=== PATIENT | female | born 1940 | race Caucasian/White ===

== ENCOUNTER 2018-01-09 17:24 | Emergency (ER) | payer MEDICARE, OTHER ==
--- NOTE | 2018-01-09 18:12 | EDM.PDOC ---
ED HPI GENERAL MEDICAL PROBLEM - General Chief Complaint: Upper Extremity Injury/Pain Stated Complaint: LEFT ARM INJURY Time Seen by Provider: 01/09/18 17:36 Source of Information: Reports: Patient History Limitations: Reports: No Limitations - History of Present Illness INITIAL COMMENTS - FREE TEXT/NARRATIVE: The patient presents with left elbow pain. She says she tripped on her husbands oxygen cord and hit her head on the counter as she went down and landed on her left elbow. She had no LOC. She has no neck pain. She has some mild pain to the right upper back. She has no headache, blurred vision or double vision. She has no numbness or weakness. She has no chest pain, abdominal pain, hip or leg pain. Onset: Today Duration: Minutes: Location: Reports: Upper Extremity, Left (Elbow) Quality: Reports: Sharp Severity: Moderate Improves with: Reports: Immobilization Worsens with: Reports: Movement Context: Reports: Trauma (She tripped on her 's oxygen cable and fell) Associated Symptoms: Reports: No Other Symptoms Left Arm Pain Score (Numeric/FACES): 10 - Related Data Allergies Allergy/AdvReac Type Severity Reaction Status Date / Time oxaprozin [From Daypro] Allergy Hives Verified 11/13/17 10:26 Cusqwre-Akk-Bza Reductase Allergy Other Verified 01/09/18 17:38 Inhibitor Past Medical History Cardiovascular History: Reports: Angina Other Cardiovascular History: Echos Respiratory History: Reports: SOB Gastrointestinal History: Reports: Chronic Constipation Genitourinary History: Reports: None 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: Oncologic (Cancer) History: Reports: Breast - Past Surgical History HEENT Surgical History: Reports: Cataract Surgery Female Surgical History: Reports: Hysterectomy Other Musculoskeletal Surgeries/Procedures:: Bilateral feet, right shoulder x2, bilateral knee replacement, thumb Oncologic Surgical History: Reports: Mastectomy Social & Family History - Family History Family Medical History: Noncontributory - Tobacco Use Smoking Status *Q: Former Smoker Used Tobacco, but Quit: Yes Month/Year Tobacco Last Used: 1985 - Recreational Drug Use Recreational Drug Use: No Review of Systems - Review of Systems Review Of Systems: See Below Constitutional: Reports: No Symptoms Eyes: Reports: No Symptoms Ears: Reports: No Symptoms Nose: Reports: No Symptoms Mouth/Throat: Reports: Other (Superficial abrasion to the lower inner lip) Respiratory: Reports: No Symptoms Cardiovascular: Reports: No Symptoms GI/Abdominal: Reports: No Symptoms Genitourinary: Reports: No Symptoms Musculoskeletal: Reports: Joint Pain (Left elbow) ED EXAM, GENERAL - Physical Exam Exam: See Below Exam Limited By: No Limitations General Appearance: Alert, No Apparent Distress Ears: Normal External Exam Nose: Normal Inspection Throat/Mouth: Other (abrasion to the lower inner lip) Head: Other (mild edema to the left maxillary area) Neck: Normal Inspection Respiratory/Chest: No Respiratory Distress, Lungs Clear, Normal Breath Sounds Cardiovascular: Regular Rate, Rhythm, No Edema, No Murmur GI/Abdominal: Soft, Non-Tender, No Organomegaly, No Mass Back Exam: Other (Mild pain upon palpation to the right upper back) Extremities: Other (Pain upon palpation to the left elbow. No edema noted. Good sensation and pulses distally.) Course - Vital Signs Last Recorded V/S: Last Vital Signs Temp 98.0 F 01/09/18 17:34 Pulse 46 L 01/09/18 17:34 Resp 17 01/09/18 17:34 BP 129/65 01/09/18 17:34 Pulse Ox 99 01/09/18 17:34 - Orders/Labs/Meds Orders: Active Orders 24 hr Category Date Time Status Elbow Min 3V Lt [CR] Stat Exams 01/09/18 17:41 Taken - Re-Assessments/Exams Free Text/Narrative Re-Assessment/Exam: 01/09/18 18:12 I ordered an x-ray of her left elbow. 01/09/18 18:51 Her x-ray looks good. I will give her a sling and have her follow up with her doctor. Departure - Departure Time of Disposition: 18:55 Disposition: Home, Self-Care 01 Condition: Good Clinical Impression: Fall Qualifiers: Encounter type: initial encounter Qualified Code(s): W19.XXXA - Unspecified fall, initial encounter Sprain of elbow, left Qualifiers: Encounter type: initial encounter Qualified Code(s): S53.402A - Unspecified sprain of left elbow, initial encounter - Discharge Information *PRESCRIPTION DRUG MONITORING PROGRAM REVIEWED*: Not Applicable *COPY OF PRESCRIPTION DRUG MONITORING REPORT IN PATIENT DANIELLA: Not Applicable Referrals: Liseth Cohen DISPATCHER RELAY [Primary Care Provider] - 1 Week Forms: ED Department Discharge Additional Instructions: Ice your elbow for 15 minutes 3 times per day for 2 days. Wear the sling for comfort. Do not leave the sling on all day long. Take your arm out and move it multiple times per day to avoid frozen shoulder. Take motrin or tylenol for pain. Please return if you are worse. - My Orders Last 24 Hours: My Active Orders 01/09/18 17:41 Elbow Min 3V Lt [CR] Stat - Assessment/Plan Last 24 Hours: My Active Orders 01/09/18 17:41 Elbow Min 3V Lt [CR] Stat
--- NOTE | 2018-01-15 08:09 | CR ---
Left elbow: Four views of left elbow were obtained. Slight articular calcifications are seen. Several small bony densities are seen off the lateral epicondyle which are incidental. Small scattered soft tissue calcifications are seen which are incidental. No joint effusion is seen. No acute fracture or other bony abnormality is identified. Impression: 1. Incidental findings as noted above. Nothing acute is seen on left elbow study. Diagnostic code #2 I agree with preliminary report issued by [facility] ([facility] preliminary report dictated on 01/09/18, 7:40 PM Central Time)
== END 2018-01-09 19:10 | disposition home or self-care (01) ==
LOC: JD.ED 17:24
DX: S53.402A Unspecified sprain of left elbow, initial encounter (principal); Z87.891 Personal history of nicotine dependence; Z88.8 Allergy status to other drugs, medicaments and biological substances; W01.198A Fall on same level from slipping, tripping and stumbling with subsequent striking against other object, initial encounter
CPT/HCPCS: 73080-LT; 99283

== ENCOUNTER 2019-01-07 17:43 | Observation (INO) | payer MEDICARE, OTHER ==
[2019-01-07] MEDS ORDERED: Lactated Ringers 1,000 ML IV ONE (19:38)
--- NOTE | 2019-01-07 19:50 | EDM.PDOC ---
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 She was just released from [facility] this afternoon about 66 hours ago after having been transferred there this past Saturday 4 days ago for A fib, elevated troponin, sx of dizziness and dyspnea with exertion. She was found to have multiple PE, started on eliquis 1 tab bid per patient and than increased to 2 tabs bid. She has had her AM dose today but not her evening dose. She was feeling fine at time of discharge. She states she was sitting in the chair started to feel somewhat lightheaded and dizzy so stood up apparently to walk to her bedroom and that is when she had the brief syncopal event. At time of exam she is resting comfortably on cot having been here in the ED for about an hour prior to my coming on shift and having availability to evaluate her. At time of my exam she denies chest pain. She does still feel very mildly short of breath. No abdominal pain nausea or vomiting. Her mouth does feel very dry at time of my exam. Treatments MEDICAL STAFF DIRECTOR: Reports: IV/IO - Related Data Allergies Allergy/AdvReac Type Severity Reaction Status Date / Time oxaprozin [From Daypro] Allergy Hives Verified 01/07/19 17:51 Zcfsggs-Xqf-Eku Reductase AdvReac Pain Verified 01/07/19 17:51 Inhibitor Home Meds: Home Meds Aspirin [Children's Aspirin] 81 mg PO BEDTIME 12/03/18 [History] Cholecalciferol (Vitamin D3) [Vitamin D3] 5,000 unit PO DAILY 12/03/18 [History] Fenofibrate 160 mg PO DAILY 12/03/18 [History] Fish Oil/[place]-3 Fatty Acids [Fish Oil 1,000 MG] 1 gm PO DAILY 12/03/18 [History ] Levothyroxine [Synthroid] 50 mcg PO BEDTIME 12/03/18 [History] Omeprazole 20 mg PO DAILY 12/03/18 [History] Triamterene/Hydrochlorothiazid [Triamterene-HCTZ 37.5-25 MG] 1 tab PO DAILY [History] Venlafaxine HCl [Venlafaxine ER] 150 mg PO DAILY 12/03/18 [History] amLODIPine Besylate [Amlodipine Besylate] 5 mg PO DAILY 12/03/18 [History] L.acidoph,Paracasei, B.lactis [Probiotic] 1 tab PO DAILY 01/03/19 [History] Tumeric. 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: Oncologic (Cancer) History: Reports: Breast - Past Surgical History HEENT Surgical History: Reports: Cataract Surgery Female Surgical History: Reports: Hysterectomy, Mastectomy Musculoskeletal Surgical History: Reports: Knee Replacement, Shoulder Surgery Other Musculoskeletal Surgeries/Procedures:: Bilateral feet, right shoulder x2, bilateral knee replacement, thumb Oncologic Surgical History: Reports: Mastectomy Social & Family History - Family History Family Medical History: Noncontributory - Tobacco Use Smoking Status *Q: Former Smoker Used Tobacco, but Quit: Yes Month/Year Tobacco Last Used: 10 yr - Caffeine Use Caffeine Use: Reports: None ED ROS GENERAL - Review of Systems Review Of Systems: See Below Constitutional: Reports: Diaphoresis (Mild, gone). Denies: Fever, Chills HEENT: Reports: Other. Denies: Throat Pain (Mouth does feel dry), Throat Swelling Respiratory: Reports: Shortness of Breath (Mild, now better). Denies: Pleuritic Chest Pain, Cough, Hemoptysis Cardiovascular: Reports: Lightheadedness (Now better). Denies: Chest Pain GI/Abdominal: Denies: Abdominal Pain, Diarrhea, Nausea, Vomiting Musculoskeletal: Denies: Neck Pain, Shoulder Pain, Arm Pain, Back Pain Skin: Reports: Diaphoresis (Mild, gone) Neurological: Reports: Weakness. Denies: Numbness, Tingling, Trouble Speaking ( Generalized, no better) ED EXAM, GENERAL - Physical Exam Exam: See Below General Appearance: Alert, No Apparent Distress (At time of my exam) Eye Exam: Bilateral Eye: PERRL Ears: Normal External Exam Nose: Normal Inspection, Nasal Flaring Throat/Mouth: Normal Oropharynx Head: Atraumatic. No: Facial Swelling Neck: Supple, Full Range of Motion, Other (No JVD). No: Lymphadenopathy (L), Lymphadenopathy (R) Respiratory/Chest: No Respiratory Distress, Lungs Clear, Normal Breath Sounds Cardiovascular: Regular Rate, Rhythm GI/Abdominal: Soft, Non-Tender Extremities: Normal Inspection, Normal Range of Motion. No: Pedal Edema, Leg Pain, Increased Warmth, Redness Neurological: Alert, Oriented, No Motor/Sensory Deficits Skin Exam: Warm, Dry, Normal Color, No Rash EKG INTERPRETATION EKG Date: 01/07/19 Rhythm: A-Fib P-Wave: Absent QRS: Other (low voltage mult. leads) ST-T: Other (T wave flattening mult. leads) Course - Vital Signs Last Recorded V/S: Last Vital Signs Temp 97.7 F 01/07/19 17:52 Pulse 97 01/07/19 17:52 Resp 24 H 01/07/19 17:52 BP 94/61 01/07/19 17:52 Pulse Ox 88 L 01/07/19 17:52 - Orders/Labs/Meds Orders: Active Orders 24 hr Category Date Time Status EKG 12 Lead [EKG Documentation Completion] [RC] STAT Care 01/07/19 19:05 Active Chest 1V Frontal [CR] Stat Exams 01/07/19 19:04 Taken Medication Orders Acetaminophen (Tylenol) 650 mg PO Q4H PRN PRN Reason: Pain (Mild 1-3)/fever Last Admin: 01/07/19 23:10 Dose: 650 mg Hydrocodone Bitart/Acetaminophen ([place] 325-5 Mg) 1 tab PO Q4H PRN PRN Reason: Pain (moderate 4-6) Albuterol/Ipratropium (Duoneb 3.0-0.5 Mg/3 Ml) 3 ml NEB Q4H PRN PRN Reason: Shortness Of Breath/wheezing Amlodipine Besylate (Norvasc) 5 mg PO DAILY [facility] Apixaban (Eliquis) 10 mg PO BID [facility] Stop: 01/12/19 21:01 Last Admin: 01/07/19 23:03 Dose: 10 mg Apixaban (Eliquis) 5 mg PO BID [facility] Aspirin (Halfprin) 81 mg PO BEDTIME [facility] Last Admin: 01/07/19 23:03 Dose: 81 mg Bisacodyl (Dulcolax) 5 mg PO DAILY PRN PRN Reason: Constipation Docusate Sodium (Colace) 100 mg PO BID PRN PRN Reason: Constipation Hydralazine HCl (Apresoline) 15 mg IVPUSH Q4H PRN PRN Reason: Hypertension Hydromorphone HCl (Dilaudid) 0.25 mg IVPUSH Q2H PRN PRN Reason: Pain (severe 7-10) Promethazine HCl 6.25 mg/ (Sodium Chloride) 50.25 mls @ 100 mls/hr IV Q6H PRN PRN Reason: Nausea/Vomiting Levothyroxine Sodium (Synthroid) 50 mcg PO BEDTIME [facility] Last Admin: 01/07/19 23:03 Dose: 50 mcg Lorazepam (Ativan) 0.25 mg IV Q6H PRN PRN Reason: Anxiety Lorazepam (Ativan) 2 mg IVPUSH Q4H PRN PRN Reason: Seizures Metoprolol Tartrate (Lopressor) 5 mg IVPUSH Q4H PRN PRN Reason: Tachycardia Non-Formulary Medication (Cholecalciferol (Vitamin D3) [Vitamin D3]) 5,000 unit PO DAILY [facility] Non-Formulary Medication (Fenofibrate) 160 mg PO DAILY [facility] Non-Formulary Medication (Omeprazole) 20 mg PO DAILY [facility] Non-Formulary Medication (Venlafaxine Hcl) 150 mg PO DAILY [facility] Ondansetron HCl (Zofran) 4 mg IV Q6H PRN PRN Reason: Nausea/Vomiting Polyethylene Glycol (Miralax) 17 gm PO DAILY PRN PRN Reason: Constipation Senna/Docusate Sodium (Senna Plus) 2 tab PO BID [facility] Last Admin: 01/07/19 23:03 Dose: 2 tab Senna/Docusate Sodium (Senna Plus) 1 tab PO BID PRN PRN Reason: Constipation Zolpidem Tartrate (Ambien) 5 mg PO BEDTIME PRN PRN Reason: Sleep Labs: Laboratory Tests 01/07/19 01/07/19 01/07/19 Range/Units 17:53 17:53 17:53 WBC 7.17 (3.98-10.04) K/mm3 RBC 4.05 (3.98-5.22) M/mm3 Hgb 12.6 D (11.2-15.7) gm/L Hct 39.0 (34.1-44.9) % MCV 96.3 H D (79.4-94.8) fl MCH 31.1 (25.6-32.2) pg MCHC 32.3 (32.2-35.5) g/dl RDW Std Deviation 52.1 H (36.4-46.3) fL Plt Count 184 (182-369) K/mm3 MPV 11.9 (9.4-12.3) fl Neut % (Auto) 67.0 (34.0-71.1) % Lymph % (Auto) 24.7 (19.3-51.7) % [place] % (Auto) 6.8 (4.7-12.5) % Eos % (Auto) 1.1 (0.7-5.8) Baso % (Auto) 0.1 (0.1-1.2) % Neut # (Auto) 4.80 (1.56-6.13) K/mm3 Lymph # (Auto) 1.77 (1.18-3.74) K/mm3 [place] # (Auto) 0.49 H (0.24-0.36) K/mm3 Eos # (Auto) 0.08 (0.04-0.36) K/mm3 Baso # (Auto) 0.01 (0.01-0.08) K/mm3 D-Dimer, Quantitative 5.03 H (0.19-0.50) mg/L Sodium 145 (136-145) mEq/L Potassium 3.9 (3.5-5.1) mEq/L Chloride 111 H (98-107) mEq/L Carbon Dioxide 18 L (21-32) mEq/L Anion Gap 19.9 H (5-15) BUN 32 H (7-18) mg/dL Creatinine 1.4 H (0.55-1.02) mg/dL Est Cr Clr Drug Dosing 35.73 mL/min Estimated GFR (MDRD) 37 (>60) mL/min BUN/Creatinine Ratio 22.9 H (14-18) Glucose 176 H (83-115) mg/dL Calcium 9.1 (8.5-10.1) mg/dL Total Bilirubin 0.7 (0.2-1.0) mg/dL AST 153 H (15-37) U/L ALT 159 H (14-59) U/L Alkaline Phosphatase 87 (46-116) U/L Troponin I 0.051 (0.00-0.056) ng/mL Total Protein 6.9 (6.4-8.2) g/dl Albumin 3.1 L (3.4-5.0) g/dl Globulin 3.8 gm/dL Albumin/Globulin Ratio 0.8 L (1-2) Meds: Medications Generic Name Dose Route Start Last Admin Trade Name Freq PRN Reason Stop Dose Admin Acetaminophen 650 mg 01/07/19 22:17 01/07/19 23:10 Tylenol PO 650 mg Q4H PRN Administration Pain (Mild 1-3)/fever Hydrocodone Bitart/Acetaminophen 1 tab 01/07/19 22:17 [place] 325-5 Mg PO Q4H PRN Pain (moderate 4-6) Albuterol/Ipratropium 3 ml 01/07/19 22:17 Duoneb 3.0-0.5 Mg/3 Ml NEB Q4H PRN Shortness Of Breath/wheezing Amlodipine Besylate 5 mg 01/08/19 09:00 Norvasc PO DAILY CLAUDE Apixaban 10 mg 01/07/19 23:00 01/07/19 23:03 Eliquis PO 01/12/19 21:01 10 mg BID CLAUDE Administration Apixaban 5 mg 01/13/19 09:00 Eliquis PO BID CLAUDE Aspirin 81 mg 01/07/19 23:00 01/07/19 23:03 Halfprin PO 81 mg BEDTIME CLAUDE Administration Bisacodyl 5 mg 01/07/19 22:17 Dulcolax PO DAILY PRN Constipation Docusate Sodium 100 mg 01/07/19 22:17 Colace PO BID PRN Constipation Hydralazine HCl 15 mg 01/07/19 22:21 Apresoline IVPUSH Q4H PRN Hypertension Hydromorphone HCl 0.25 mg 01/07/19 22:17 Dilaudid IVPUSH Q2H PRN Pain (severe 7-10) Promethazine HCl 6.25 mg/ 50.25 mls @ 100 mls/hr 01/07/19 22:17 Sodium Chloride IV Q6H PRN Nausea/Vomiting Levothyroxine Sodium 50 mcg 01/07/19 23:00 01/07/19 23:03 Synthroid PO 50 mcg BEDTIME CLAUDE Administration Lorazepam 0.25 mg 01/07/19 22:17 Ativan IV Q6H PRN Anxiety Lorazepam 2 mg 01/07/19 22:21 Ativan IVPUSH Q4H PRN Seizures Metoprolol Tartrate 5 mg 01/07/19 22:21 Lopressor IVPUSH Q4H PRN Tachycardia Non-Formulary Medication 5,000 unit 01/08/19 09:00 Cholecalciferol (Vitamin D3) [Vitamin D3] PO DAILY CLAUDE Non-Formulary Medication 160 mg 01/08/19 09:00 Fenofibrate PO DAILY CLAUDE Non-Formulary Medication 20 mg 01/08/19 09:00 Omeprazole PO DAILY CLAUDE Non-Formulary Medication 150 mg 01/08/19 09:00 Venlafaxine Hcl PO DAILY CLAUDE Ondansetron HCl 4 mg 01/07/19 22:17 Zofran IV Q6H PRN Nausea/Vomiting Polyethylene Glycol 17 gm 01/07/19 22:17 Miralax PO DAILY PRN Constipation Senna/Docusate Sodium 2 tab 01/07/19 23:00 01/07/19 23:03 Senna Plus PO 2 tab BID CLAUDE Administration Senna/Docusate Sodium 1 tab 01/07/19 22:17 Senna Plus PO BID PRN Constipation Zolpidem Tartrate 5 mg 01/07/19 22:17 Ambien PO BEDTIME PRN Sleep Discontinued Medications Generic Name Dose Route Start Last Admin Trade Name Freq PRN Reason Stop Dose Admin Furosemide 10 mg 01/07/19 22:22 01/07/19 23:02 Lasix IVPUSH 01/07/19 22:23 10 mg NOW ONE Administration Lactated Ringer's 1,000 mls @ 999 mls/hr 01/07/19 19:38 01/07/19 19:50 Ringers, Lactated IV 01/07/19 20:38 999 mls/hr .BOLUS ONE Administration Pantoprazole Sodium 40 mg 01/08/19 09:00 Protonix Iv IV Q12HR CLAUDE - Re-Assessments/Exams Free Text/Narrative Re-Assessment/Exam: 01/07/19 23:38. O2 sats were 88% on arrival to ED by the time of my exam a running 92-94%. She was not wheezing or obviously short of breath. Chest x-ray showed mild cardiomegaly, no infiltrate or evidence for pulmonary congestion. Labs did show what appears to be moderate dehydration with CO2 of 18, anion gap 19.9, BUN 32 creatinine 1.4. BNP noted to be quite elevated at 16,902. D Dimer 5.03. WBC 12.6 white blood count 7170. She was given 1 L of lactated Ringer's. She is doing much better but in terms of her brief syncope at home not safe to go home at time of admission. Patient was admitted observation status MedSurg telemetry for further evaluation and treatment. Departure - Departure Time of Disposition: 20:15 Disposition: Refer to Observation Condition: Fair Clinical Impression: Dehydration, Pulmonary emboli Syncope Qualifiers: Syncope type: unspecified Qualified Code(s): R55 - Syncope and collapse - Discharge Information ED Communication - Discussed Case With (1) Discussed Case With (1): Admitting Provider (Dr Alberto, decision to admit at about 20:15.) - My Orders Last 24 Hours: My Active Orders 01/07/19 19:04 Chest 1V Frontal [CR] Stat 01/07/19 19:05 EKG 12 Lead [EKG Documentation Completion] [RC] STAT - Assessment/Plan Last 24 Hours: My Active Orders 01/07/19 19:04 Chest 1V Frontal [CR] Stat 01/07/19 19:05 EKG 12 Lead [EKG Documentation Completion] [RC] STAT
[2019-01-07] MEDS ORDERED: Bisacodyl 5 MG Tab PO PRN (22:17)
[2019-01-07] MEDS ORDERED: Ondansetron 4 MG/2 ML SDV IV PRN (22:17)
[2019-01-07] MEDS ORDERED: Docusate Sodium 100 MG Cap PO PRN (22:17)
[2019-01-07] MEDS ORDERED: Polyethylene Glycol 3350 Powder 17 GM Packet PO PRN (22:17)
[2019-01-07] MEDS ORDERED: LORazepam 2 MG/ML SDV IV PRN (22:17)
[2019-01-07] MEDS ORDERED: Acetaminophen/HYDROcodone 325-5 MG Tab PO PRN (22:17)
[2019-01-07] MEDS ORDERED: Zolpidem 5 MG Tab PO PRN (22:17)
[2019-01-07] MEDS ORDERED: Albuterol/Ipratropium 3.0-0.5 MG/3 ML Neb Soln NEB PRN (22:17)
[2019-01-07] MEDS ORDERED: HYDROmorphone 0.5 MG/0.5 ML Syringe IVPUSH PRN (22:17)
[2019-01-07] MEDS ORDERED: Promethazine 6.25 MG in Sodium Chloride 0.9% 50 ML IV PRN (22:17)
[2019-01-07] MEDS ORDERED: Metoprolol Tartrate 5 MG/5 ML SDV IVPUSH PRN (22:21)
[2019-01-07] MEDS ORDERED: hydrALAZINE 20 MG/ML SDV IVPUSH PRN (22:21)
[2019-01-07] MEDS ORDERED: LORazepam 2 MG/ML SDV IVPUSH PRN (22:21)
[2019-01-07] MEDS ORDERED: Furosemide 20 MG/2 ML VIAL IVPUSH ONE (22:22)
--- NOTE | 2019-01-07 22:23 | PCM.SN ---
- Free Text/Narrative Note: Patient seen and examined with family at beside. Updated them about her diagnoses and additional tests that we will perform which likely be all done in the morning.
[2019-01-07] MEDS ORDERED: Levothyroxine 50 MCG Tab **OWN MED PO SCH (23:00)
[2019-01-07] MEDS ORDERED: ASPIRIN 81 MG PO SCH (23:00)
[2019-01-07] MEDS: Apixaban 5 MG Tab ** OWN MED PO SCH (23:03)
[2019-01-07] MEDS: Docusate Sodium/Sennosides 50-8.6 MG Tab **OWN MED PO SCH (23:03)
[2019-01-07] MEDS: Acetaminophen 325 MG Tab PO PRN (23:10)
[2019-01-08] MEDS: Acetaminophen 325 MG Tab PO PRN (05:06)
--- NOTE | 2019-01-08 07:57 | PCM.HP.2 ---
H&P History of Present Illness - General Date of Service: 01/08/19 Admit Problem/Dx: Admission Diagnosis/Problem Admission Diagnosis/Problem Dehydration Source of Information: Patient, Family, Rfp Writer, Old Records, RN Notes Reviewed, Significant Other History Limitations: Reports: Physical Impairment - History of Present Illness Initial Comments - Free Text/Narative: This is a 78 yo elderly white female with past medical hx/o HTN, HLD, Angina, Hypothyroidism and Vitamin D Deficiency, Depression, Constipation, Hx/o Breast CA S/p Mastectomy and Obesity who comes in for evaluation of near syncope that took place at home. She was sitting on her chair when she developed sudden onset of dizziness and lightheadedness after she stood up. Her chief complaint was associated with dyspnea on exertion as well as unsteadiness. Patient was recently discharged from [facility] in the past few days after she was diagnosed with atrial fibrillation and pulmonary embolism. She states she was doing just fine up until yesterday. Her initial work up revealed an unremarkable CBC. Her D-dimer was 5.03. Her Chemistry was significant for Cl of 111, CO2 of 18, AG of 19.9, BUN of 32, Cr of 1.4, BS of 176, AST of 153, ALT of 159, [place] [address] and Albumin of 3.1. Her chest x-ray showed nothing acute is seen. Patient was orthostatic on presentation to ED. She received volume resuscitation prior to coming in to the floor last night. She was admitted overnight for near syncopal episode. - Related Data Allergies/Adverse Reactions: Allergies Allergy/AdvReac Type Severity Reaction Status Date / Time oxaprozin [From Daypro] Allergy Hives Verified 01/07/19 17:51 Fqzkunf-Iyb-Rhm Reductase AdvReac Pain Verified 01/07/19 17:51 Inhibitor Home Medications: Home Meds Aspirin [Children's Aspirin] 81 mg PO BEDTIME 12/03/18 [History] Cholecalciferol (Vitamin D3) [Vitamin D3] 5,000 unit PO DAILY 12/03/18 [History] Fenofibrate 160 mg PO DAILY 12/03/18 [History] Fish Oil/[place]-3 Fatty Acids [Fish Oil 1,000 MG] 1 gm PO DAILY 12/03/18 [History ] Levothyroxine [Synthroid] 50 mcg PO BEDTIME 12/03/18 [History] Omeprazole 20 mg PO DAILY 12/03/18 [History] Triamterene/Hydrochlorothiazid [Triamterene-HCTZ 37.5-25 MG] 1 tab PO DAILY [History] Venlafaxine HCl [Venlafaxine ER] 150 mg PO DAILY 12/03/18 [History] amLODIPine Besylate [Amlodipine Besylate] 5 mg PO DAILY 12/03/18 [History] L.acidoph,Paracasei, B.lactis [Probiotic] 1 tab PO DAILY 01/03/19 [History] Tumeric. 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: Musculoskeletal History: Reports: Arthritis Psychiatric History: Reports: Depression Endocrine/Metabolic History: Reports: Hypoparathyroidism Hematologic History: Reports: Blood Transfusion(s) Oncologic (Cancer) History: Reports: Breast - Infectious Disease History Infectious Disease History: Reports: Chicken Pox, Measles - Past Surgical History HEENT Surgical History: Reports: Cataract Surgery Female Surgical History: Reports: Hysterectomy, Mastectomy Musculoskeletal Surgical History: Reports: Knee Replacement, Shoulder Surgery Other Musculoskeletal Surgeries/Procedures:: Bilateral feet, right shoulder x2, bilateral knee replacement, thumb Oncologic Surgical History: Reports: Mastectomy Social & Family History - Family History Family Medical History: Noncontributory - Tobacco Use Smoking Status *Q: Former Smoker Years of Tobacco use: 20 Packs/Tins Daily: 1 Used Tobacco, but Quit: Yes Month/Year Tobacco Last Used: 10 yr Second Hand Smoke Exposure: No - Caffeine Use Caffeine Use: Reports: None Other Caffeine Use: Uses decaffinated beverages. - Recreational Drug Use Recreational Drug Use: No H&P Review of Systems - Review of Systems: Review Of Systems: ROS reveals no pertinent complaints other than HPI. Exam - Exam Exam: See Below - Vital Signs Vital Signs: Last Vital Signs Temp 35.9 C 01/08/19 02:43 Pulse 83 01/08/19 02:43 Resp 14 01/08/19 02:43 BP 119/64 01/08/19 02:43 Pulse Ox 96 01/08/19 02:43 Weight: 97.976 kg - Exam Quality Assessment: Supplemental Oxygen General: Alert, Oriented, Cooperative HEENT: Conjunctiva Clear, EACs Clear, EOMI, Hearing Intact, Mucosa Moist & [place] , Nares Patent, Normal Nasal Septum, Posterior Pharynx Clear Neck: Supple, Trachea Midline Lungs: Normal Respiratory Effort, Crackles (mild at the bases) Cardiovascular: Regular Rate, Regular Rhythm GI/Abdominal Exam: Normal Bowel Sounds, Soft, Non-Tender, No Organomegaly, No Distention, No Abnormal Bruit, No Mass (Female) Exam: Deferred Rectal (Female) Exam: Deferred Back Exam: Normal Inspection, Decreased Range of Motion Extremities: Normal Inspection, Normal Range of Motion, Non-Tender, No Pedal Edema, Leg Pain (non pitting edema) Peripheral Pulses: 1+: Dorsalis Pedis (L), Dorsalis Pedis (R) Skin: Warm, Dry, Intact Neuro Extensive - Mental Status: Oriented x3, Normal Cognition, Memory Intact Neuro Extensive - Motor, Sensory, Reflexes: CN II-XII Intact (limited due to dizziness and orthostasis), Abnormal Gait Psychiatric: Alert, Normal Affect, Normal Mood - Patient Data Lab Results Last 24 hrs: Laboratory Results - last 24 hr 01/07/19 01/07/19 01/07/19 Range/Units 17:53 17:53 17:53 WBC 7.17 (3.98-10.04) K/mm3 RBC 4.05 (3.98-5.22) M/mm3 Hgb 12.6 D (11.2-15.7) gm/L Hct 39.0 (34.1-44.9) % MCV 96.3 H D (79.4-94.8) fl MCH 31.1 (25.6-32.2) pg MCHC 32.3 (32.2-35.5) g/dl RDW Std Deviation 52.1 H (36.4-46.3) fL Plt Count 184 (182-369) K/mm3 MPV 11.9 (9.4-12.3) fl Neut % (Auto) 67.0 (34.0-71.1) % Lymph % (Auto) 24.7 (19.3-51.7) % [place] % (Auto) 6.8 (4.7-12.5) % Eos % (Auto) 1.1 (0.7-5.8) Baso % (Auto) 0.1 (0.1-1.2) % Neut # (Auto) 4.80 (1.56-6.13) K/mm3 Lymph # (Auto) 1.77 (1.18-3.74) K/mm3 [place] # (Auto) 0.49 H (0.24-0.36) K/mm3 Eos # (Auto) 0.08 (0.04-0.36) K/mm3 Baso # (Auto) 0.01 (0.01-0.08) K/mm3 Manual Slide Review D-Dimer, Quantitative 5.03 H (0.19-0.50) mg/L Sodium 145 (136-145) mEq/L Potassium 3.9 (3.5-5.1) mEq/L Chloride 111 H (98-107) mEq/L Carbon Dioxide 18 L (21-32) mEq/L Anion Gap 19.9 H (5-15) BUN 32 H (7-18) mg/dL Creatinine 1.4 H (0.55-1.02) mg/dL Est Cr Clr Drug Dosing 35.73 mL/min Estimated GFR (MDRD) 37 (>60) mL/min BUN/Creatinine Ratio 22.9 H (14-18) Glucose 176 H (83-115) mg/dL Calcium 9.1 (8.5-10.1) mg/dL Magnesium (1.8-2.4) mg/dl Total Bilirubin 0.7 (0.2-1.0) mg/dL AST 153 H (15-37) U/L ALT 159 H (14-59) U/L Alkaline Phosphatase 87 (46-116) U/L Troponin I 0.051 (0.00-0.056) ng/mL NT-Pro-B Natriuret Pep (0-450) pg/mL Total Protein 6.9 (6.4-8.2) g/dl Albumin 3.1 L (3.4-5.0) g/dl Globulin 3.8 gm/dL Albumin/Globulin Ratio 0.8 L (1-2) 01/07/19 01/08/19 01/08/19 Range/Units 22:36 04:03 04:03 WBC 6.06 (3.98-10.04) K/mm3 RBC 4.03 (3.98-5.22) M/mm3 Hgb 12.5 (11.2-15.7) gm/L Hct 38.8 (34.1-44.9) % MCV 96.3 H (79.4-94.8) fl MCH 31.0 (25.6-32.2) pg MCHC 32.2 (32.2-35.5) g/dl RDW Std Deviation 51.9 H (36.4-46.3) fL Plt Count 176 L (182-369) K/mm3 MPV 12.4 H (9.4-12.3) fl Neut % (Auto) 69.6 (34.0-71.1) % Lymph % (Auto) 20.3 (19.3-51.7) % [place] % (Auto) 9.4 (4.7-12.5) % Eos % (Auto) 0.3 L (0.7-5.8) Baso % (Auto) 0.2 (0.1-1.2) % Neut # (Auto) 4.22 (1.56-6.13) K/mm3 Lymph # (Auto) 1.23 (1.18-3.74) K/mm3 [place] # (Auto) 0.57 H (0.24-0.36) K/mm3 Eos # (Auto) 0.02 L (0.04-0.36) K/mm3 Baso # (Auto) 0.01 (0.01-0.08) K/mm3 Manual Slide Review Normal smear D-Dimer, Quantitative (0.19-0.50) mg/L Sodium 141 (136-145) mEq/L Potassium 3.7 (3.5-5.1) mEq/L Chloride 108 H (98-107) mEq/L Carbon Dioxide 19 L (21-32) mEq/L Anion Gap 17.7 H (5-15) BUN 32 H (7-18) mg/dL Creatinine 1.3 H (0.55-1.02) mg/dL Est Cr Clr Drug Dosing 38.47 mL/min Estimated GFR (MDRD) 40 (>60) mL/min BUN/Creatinine Ratio 24.6 H (14-18) Glucose 143 H (83-115) mg/dL Calcium 9.1 (8.5-10.1) mg/dL Magnesium 2.1 (1.8-2.4) mg/dl Total Bilirubin (0.2-1.0) mg/dL AST (15-37) U/L ALT (14-59) U/L Alkaline Phosphatase (46-116) U/L Troponin I (0.00-0.056) ng/mL NT-Pro-B Natriuret Pep 17461 H (0-450) pg/mL Total Protein (6.4-8.2) g/dl Albumin (3.4-5.0) g/dl Globulin gm/dL Albumin/Globulin Ratio (1-2) 01/08/19 Range/Units 04:03 WBC (3.98-10.04) K/mm3 RBC (3.98-5.22) M/mm3 Hgb (11.2-15.7) gm/L Hct (34.1-44.9) % MCV (79.4-94.8) fl MCH (25.6-32.2) pg MCHC (32.2-35.5) g/dl RDW Std Deviation (36.4-46.3) fL Plt Count (182-369) K/mm3 MPV (9.4-12.3) fl Neut % (Auto) (34.0-71.1) % Lymph % (Auto) (19.3-51.7) % [place] % (Auto) (4.7-12.5) % Eos % (Auto) (0.7-5.8) Baso % (Auto) (0.1-1.2) % Neut # (Auto) (1.56-6.13) K/mm3 Lymph # (Auto) (1.18-3.74) K/mm3 [place] # (Auto) (0.24-0.36) K/mm3 Eos # (Auto) (0.04-0.36) K/mm3 Baso # (Auto) (0.01-0.08) K/mm3 Manual Slide Review D-Dimer, Quantitative (0.19-0.50) mg/L Sodium (136-145) mEq/L Potassium (3.5-5.1) mEq/L Chloride (98-107) mEq/L Carbon Dioxide (21-32) mEq/L Anion Gap (5-15) BUN (7-18) mg/dL Creatinine (0.55-1.02) mg/dL Est Cr Clr Drug Dosing mL/min Estimated GFR (MDRD) (>60) mL/min BUN/Creatinine Ratio (14-18) Glucose (83-115) mg/dL Calcium (8.5-10.1) mg/dL Magnesium (1.8-2.4) mg/dl Total Bilirubin (0.2-1.0) mg/dL AST (15-37) U/L ALT (14-59) U/L Alkaline Phosphatase (46-116) U/L Troponin I (0.00-0.056) ng/mL NT-Pro-B Natriuret Pep 18032 H (0-450) pg/mL Total Protein (6.4-8.2) g/dl Albumin (3.4-5.0) g/dl Globulin gm/dL Albumin/Globulin Ratio (1-2) Result Diagrams: 01/08/19 04:03 01/08/19 04:03 Problem List Initiated/Reviewed/Updated: Yes Orders Last 24hrs: Active Orders 24 hr Category Date Time Status Admission Status [Patient Status] [ADT] Routine ADT 01/07/19 20:15 Active Cardiac Monitoring [RC] CONTINUOUS Care 01/07/19 22:18 Active EKG 12 Lead [EKG Documentation Completion] [RC] STAT Care 01/07/19 19:05 Active Height and Weight [RC] 04 Care 01/07/19 22:17 Active Intake and Output [RC] 04,16 Care 01/07/19 22:17 Active Oxygen Therapy [RC] PRN Care 01/07/19 22:17 Active RT Aerosol Therapy [RC] ASDIRECTED Care 01/07/19 22:20 Active Up With Assistance [RC] ASDIRECTED Care 01/07/19 22:17 Active VTE/DVT Education [RC] PER UNIT ROUTINE Care 01/07/19 22:17 Active Vital Signs [RC] 00,04,08,12,20 Care 01/07/19 22:17 Active Consult to Case Management/Supervisory Historian [CONS] Cons 01/07/19 22:17 Active Routine Consult to Spiritual Care [CONS] Routine Cons 01/07/19 22:17 Active OT Evaluation and Treatment [CONS] Routine Cons 01/07/19 22:17 Active PT Evaluation and Treatment [CONS] Routine Cons 01/07/19 22:17 Active Regular Diet [DIET] Diet 01/07/19 Dinner Active Carotid Comp [US] Routine Exams 01/08/19 Ordered Chest 1V Frontal [CR] Stat Exams 01/07/19 19:04 Taken Head wo Cont [CT] Routine Exams 01/08/19 07:00 Ordered Venous Doppler Lwr Ext Bi [US] Routine Exams 01/08/19 Ordered BASIC METABOLIC PANEL,BMP [CHEM] AM Lab 01/09/19 05:11 Ordered BASIC METABOLIC PANEL,BMP [CHEM] AM Lab 01/10/19 05:11 Ordered BASIC METABOLIC PANEL,BMP [CHEM] AM Lab 01/11/19 05:11 Ordered BASIC METABOLIC PANEL,BMP [CHEM] AM Lab 01/12/19 05:11 Ordered CBC WITH AUTO DIFF [HEME] AM Lab 01/09/19 05:11 Ordered CBC WITH AUTO DIFF [HEME] AM Lab 01/10/19 05:11 Ordered CBC WITH AUTO DIFF [HEME] AM Lab 01/11/19 05:11 Ordered CBC WITH AUTO DIFF [HEME] AM Lab 01/12/19 05:11 Ordered MAGNESIUM [CHEM] AM Lab 01/09/19 05:11 Ordered MAGNESIUM [CHEM] AM Lab 01/10/19 05:11 Ordered MAGNESIUM [CHEM] AM Lab 01/11/19 05:11 Ordered MAGNESIUM [CHEM] AM Lab 01/12/19 05:11 Ordered Acetaminophen [Tylenol] Med 01/07/19 22:17 Active 650 mg PO Q4H PRN Acetaminophen/HYDROcodone [[place] 325-5 MG] Med 01/07/19 22:17 Active 1 tab PO Q4H PRN Albuterol/Ipratropium [DuoNeb 3.0-0.5 MG/3 ML] Med 01/07/19 22:17 Active 3 ml NEB Q4H PRN Apixaban [Eliquis] Med 01/07/19 23:00 Active 10 mg PO BID Apixaban [Eliquis] Med 01/13/19 09:00 Active 5 mg PO BID Aspirin [Halfprin] Med 01/07/19 23:00 Active 81 mg PO BEDTIME Bisacodyl [Dulcolax] Med 01/07/19 22:17 Active 5 mg PO DAILY PRN Cholecalciferol (Vitamin D3) [Vitamin D3] Med 01/08/19 09:00 Active 5,000 unit PO DAILY Docusate Sodium [Colace] Med 01/07/19 22:17 Active 100 mg PO BID PRN Docusate Sodium/Sennosides [Senna Plus] Med 01/07/19 22:17 Active 1 tab PO BID PRN Docusate Sodium/Sennosides [Senna Plus] Med 01/07/19 23:00 Active 2 tab PO BID HYDROmorphone [Dilaudid] Med 01/07/19 22:17 Active 0.25 mg IVPUSH Q2H PRN LORazepam [Ativan] Med 01/07/19 22:17 Active 0.25 mg IV Q6H PRN LORazepam [Ativan] Med 01/07/19 22:21 Active 2 mg IVPUSH Q4H PRN Levothyroxine [Synthroid] Med 01/07/19 23:00 Active 50 mcg PO BEDTIME Metoprolol Tartrate [Lopressor] Med 01/07/19 22:21 Active 5 mg IVPUSH Q4H PRN Ondansetron [Zofran] Med 01/07/19 22:17 Active 4 mg IV Q6H PRN Patient's Own Medication [Ptom] Med 01/08/19 09:00 Active 0 each PO DAILY Patient's Own Medication [Ptom] Med 01/08/19 09:00 Active 0 each PO DAILY Patient's Own Medication [Ptom] Med 01/08/19 09:00 Active 0 each PO DAILY Polyethylene Glycol 3350 [MiraLAX] Med 01/07/19 22:17 Active 17 gm PO DAILY PRN Promethazine [Phenergan] 6.25 mg Med 01/07/19 22:17 Active Sodium Chloride 0.9% [Normal Saline] 50 ml IV Q6H Zolpidem [Ambien] Med 01/07/19 22:17 Active 5 mg PO BEDTIME PRN amLODIPine [Norvasc] Med 01/08/19 09:00 Active 5 mg PO DAILY hydrALAZINE [Apresoline] Med 01/07/19 22:21 Active 15 mg IVPUSH Q4H PRN Resuscitation Status Routine Resus Stat 01/07/19 20:59 Ordered Medication Orders Acetaminophen (Tylenol) 650 mg PO Q4H PRN PRN Reason: Pain (Mild 1-3)/fever Last Admin: 01/08/19 05:06 Dose: 650 mg Admin: 01/07/19 23:10 Dose: 650 mg Hydrocodone Bitart/Acetaminophen ([place] 325-5 Mg) 1 tab PO Q4H PRN PRN Reason: Pain (moderate 4-6) Albuterol/Ipratropium (Duoneb 3.0-0.5 Mg/3 Ml) 3 ml NEB Q4H PRN PRN Reason: Shortness Of Breath/wheezing Amlodipine Besylate (Norvasc) 5 mg PO DAILY [facility] Apixaban (Eliquis) 10 mg PO BID [facility] Stop: 01/12/19 21:01 Last Admin: 01/07/19 23:03 Dose: 10 mg Apixaban (Eliquis) 5 mg PO BID [facility] Aspirin (Halfprin) 81 mg PO BEDTIME [facility] Last Admin: 01/07/19 23:03 Dose: 81 mg Bisacodyl (Dulcolax) 5 mg PO DAILY PRN PRN Reason: Constipation Cholecalciferol (Vitamin D3) 5,000 unit PO DAILY [facility] Docusate Sodium (Colace) 100 mg PO BID PRN PRN Reason: Constipation Hydralazine HCl (Apresoline) 15 mg IVPUSH Q4H PRN PRN Reason: Hypertension Hydromorphone HCl (Dilaudid) 0.25 mg IVPUSH Q2H PRN PRN Reason: Pain (severe 7-10) Promethazine HCl 6.25 mg/ (Sodium Chloride) 50.25 mls @ 100 mls/hr IV Q6H PRN PRN Reason: Nausea/Vomiting Levothyroxine Sodium (Synthroid) 50 mcg PO BEDTIME [facility] Last Admin: 01/07/19 23:03 Dose: 50 mcg Lorazepam (Ativan) 0.25 mg IV Q6H PRN PRN Reason: Anxiety Lorazepam (Ativan) 2 mg IVPUSH Q4H PRN PRN Reason: Seizures Metoprolol Tartrate (Lopressor) 5 mg IVPUSH Q4H PRN PRN Reason: Tachycardia Ondansetron HCl (Zofran) 4 mg IV Q6H PRN PRN Reason: Nausea/Vomiting Fenofibrate 160 Mg * (*Ptom) 0 each PO DAILY [facility] Omeprazole 20 Mg (Ptom) 0 each PO DAILY [facility] Venlafaxine Hcl Er (150 Mg Ptom) 0 each PO DAILY [facility] Polyethylene Glycol (Miralax) 17 gm PO DAILY PRN PRN Reason: Constipation Senna/Docusate Sodium (Senna Plus) 2 tab PO BID [facility] Last Admin: 01/07/19 23:03 Dose: 2 tab Senna/Docusate Sodium (Senna Plus) 1 tab PO BID PRN PRN Reason: Constipation Zolpidem Tartrate (Ambien) 5 mg PO BEDTIME PRN PRN Reason: Sleep Assessment/Plan Comment:: Assessment: Acute: Near Syncope - Had Dizziness and Lightheadedness - She was orthostasis in ED - Risk factors: Atrial Fibrillation and PE (recent diagnosis) - EKG shows atrial fibrillation - HR on telemetry so far was controlled - Had 2D echo in [place]; will try to obtain report - Head CT scan and Carotid U/S in AM - Fall precautions Pulmonary Emboli - Suspect 2/2 Atrial Fibrillation - No LE studies done - Duplex U/S to r/o DVT due to leg instability and edema - Continue Eliquis 10 mg po BID for 7 days then 5 mg po BID thereafter Acute Kidney Injury - Received contrast during her recent hospitalization - CR is 1.4--> 1.3 - She received adequate hydration in ED - Avoid nephrotoxic agents Generalized Weakness - Unable to stand up and unsteady - PT/OT to assess and teat Significant Weight Gain - Peripheral edema and bibasilar crackles - ProBNP of 16K and now 20K - 2/2 significant volume resuscitation - Consider gentle diuresis Chronic: HTN, HLD, Angina, Hypothyroidism and Vitamin D Deficiency, Depression, Constipation, Hx/o Breast CA S/p Mastectomy and Obesity Plan: Admit to the floor Routine AM Labs Resume Home Meds No IVF and regular diet DVT/GI Prophylaxis PT/OT to assess and treat SW/CM for d/c planning Code status: full Additional orders as above Prognosis is guarded-good Met up with her family at beside and updated them about her diagnoses, test results, and treatment plan
--- NOTE | 2019-01-08 08:11 | CR ---
Chest: Portable view of the chest was obtained. Comparison: Prior chest x-ray of 01/03/19. Heart size appears within normal limits for portable technique. Tortuous thoracic aorta is noted. Lungs are clear with no acute parenchymal change. Surgical clips are seen within the lower left chest or breast. Right shoulder prosthesis is seen. Scoliosis is noted within the spine. Impression: 1. Incidental findings. Nothing acute is seen. Diagnostic code #2
[2019-01-08] MEDS ORDERED: VENLAFAXINE HCL 150 MG PO SCH (09:00)
[2019-01-08] MEDS ORDERED: OMEPRAZOLE 20 MG PO SCH (09:00)
[2019-01-08] MEDS ORDERED: Cholecalciferol (Vitamin D3) 5,000 UNIT Tab PO SCH (09:00)
[2019-01-08] MEDS ORDERED: amLODIPine 5 MG Tab PO SCH (09:00)
[2019-01-08] MEDS ORDERED: FENOFIBRATE 160 MG PO SCH (09:00)
[2019-01-08] MEDS ORDERED: Pantoprazole 40 MG Vial IV SCH (09:00)
[2019-01-08] MEDS: Apixaban 5 MG Tab ** OWN MED PO SCH (10:40)
[2019-01-08] MEDS: Docusate Sodium/Sennosides 50-8.6 MG Tab **OWN MED PO SCH (10:41)
--- NOTE | 2019-01-08 11:11 | CT ---
Head CT Technique: Multiple axial sections through the brain were obtained. Intravenous contrast was not utilized. Comparison: Prior head CT study of 01/03/19. Findings: Ventricles along with basal cisterns and sulci over the convexities are within normal limits for the patient's age. No abnormal parenchymal densities are seen. No evidence of intracranial hemorrhage. No midline shift or mass effect is seen. Hyperostosis interna frontalis is noted which is a normal variant. Atherosclerotic calcification is seen within the carotid siphon. Impression: 1. Findings as noted above. Nothing acute is appreciated on noncontrast head CT study. Diagnostic code #2
--- NOTE | 2019-01-08 11:11 | US ---
Carotid ultrasound: Duplex and color flow imaging was obtained of the carotid arteries. Mild amount of plaque noted within the distal common carotid artery and carotid bulb as well as extending into the internal carotid artery on the left side. Mild to moderate plaque is noted within the right carotid bulb extending into the internal carotid artery on the right side. Plaque shows irregular surface margins. Right side: CCA has a peak systolic velocity of 0.36 m/sec. ICA has a peak systolic velocity of 0.51 m/sec and peak end-diastolic velocity of 0.19 m/sec. ECA has a peak systolic velocity of 0.69 m/sec. Vertebral artery has a peak systolic velocity of 0.25 m/sec. ICA/CCA ratio is 1.4. Left side: CCA has a peak systolic velocity of 0.54 m/sec. ICA has a peak systolic velocity of 0.88 m/sec and peak end-diastolic velocity of 0.30 m/sec. ECA has a peak systolic velocity of 0.65 m/sec. Vertebral artery has a peak systolic velocity of 0.44 m/sec. ICA/CCA ratio is 1.6. Impression: 1. Scattered plaque which shows irregular surface margins. Plaque is worse on the right side than on the left side. 2. Velocity measurements within both internal carotid arteries correspond to stenosis in the range of 1-49%. Diagnostic code #3
--- NOTE | 2019-01-08 11:14 | US ---
Bilateral lower extremity deep venous ultrasound: Duplex and color flow imaging was obtained of the right left common femoral, proximal greater saphenous, superficial femoral, popliteal, posterior tibial and peroneal veins. Findings: Lack of compression as well as phasic flow and augmentation is noted within the right popliteal and posterior tibial vein compatible with venous thrombosis. Other veins show normal phasic flow, augmentation and compression. Impression: 1. Positive study for DVT within the right popliteal and posterior tibial veins. Diagnostic code #5 [employer] called and talked to Anuja charge nurse, as Dr. Alberto was busy with rounds on 01/08/19 at 1106
--- NOTE | 2019-01-08 17:26 | PCM.DCSUM1 ---
Discharge Summary - Hospital Course Brief History: This is a 78 yo elderly white female with past medical hx/o HTN, HLD, Angina, Hypothyroidism and Vitamin D Deficiency, Depression, Constipation, Hx/o Breast CA S/p Mastectomy and Obesity who comes in for evaluation of near syncope that took place at home. She was sitting on her chair when she developed sudden onset of dizziness and lightheadedness after she stood up. Her chief complaint was associated with dyspnea on exertion as well as unsteadiness. Patient was recently discharged from [facility] in the past few days after she was diagnosed with atrial fibrillation and pulmonary embolism. She states she was doing just fine up until yesterday. Her initial work up revealed an unremarkable CBC. Her D-dimer was 5.03. Her Chemistry was significant for Cl of 111, CO2 of 18, AG of 19.9, BUN of 32, Cr of 1.4, BS of 176, AST of 153, [place] [address] and Albumin of 3.1. Her chest x- ray showed nothing acute is seen. Patient was orthostatic on presentation to ED. She received volume resuscitation prior to coming in to the floor last night. She was admitted overnight for near syncopal episode. Diagnosis: Stroke: No - Discharge Data Discharge Date: 01/08/19 Discharge Disposition: DC/Tfer to Acute Hospital 02 Condition: Good - Patient Summary/Data Operative Procedure(s) Performed: None Complications: None Consults: Consultations 01/07/19 22:17 Consult to Case Management/Voice Pathologist [CONS] Routine Consult to Spiritual Care [CONS] Routine OT Evaluation and Treatment [CONS] Routine PT Evaluation and Treatment [CONS] Routine Labs Pending at D/C: None Recommended Follow-up Testing/Procedures: None Planned Operative Procedure(s) after DC: None Hospital Course: Patient was primarily admitted for evaluation of near syncope. Her head CT scan was negative and Carotid U/S showed no significant atherosclerosis. However her duplex U/S was positive for right lower extremity DVT. This morning she remained symptomatic and unsteady with ambulation. Her family was concerned and felt she may need higher level of care. Called [facility] Salas in [facility] and went over her case with Dr. Fong who agreed to accept patient for further evaluation and management. - Patient Instructions Diet: Usual Diet as Tolerated Activity: As Tolerated Driving: Do Not Drive Showering/Bathing: May Shower Notify Provider of: Fever, Increased Pain, Swelling and Redness Other/Special Instructions: - Transfer to [facility] for upper level of care, attending hospitalist - Discharge Plan *PRESCRIPTION DRUG MONITORING PROGRAM REVIEWED*: Not Applicable *COPY OF PRESCRIPTION DRUG MONITORING REPORT IN PATIENT DANIELLA: Not Applicable Home Medications: Home Meds Aspirin [Children's Aspirin] 81 mg PO BEDTIME 12/03/18 [History] Cholecalciferol (Vitamin D3) [Vitamin D3] 5,000 unit PO DAILY 12/03/18 [History] Fenofibrate 160 mg PO DAILY 12/03/18 [History] Fish Oil/[place]-3 Fatty Acids [Fish Oil 1,000 MG] 1 gm PO DAILY 12/03/18 [History ] Levothyroxine [Synthroid] 50 mcg PO BEDTIME 12/03/18 [History] Omeprazole 20 mg PO DAILY 12/03/18 [History] Triamterene/Hydrochlorothiazid [Triamterene-HCTZ 37.5-25 MG] 1 tab PO DAILY [History] Venlafaxine HCl [Venlafaxine ER] 150 mg PO DAILY 12/03/18 [History] amLODIPine Besylate [Amlodipine Besylate] 5 mg PO DAILY 12/03/18 [History] L.acidoph,Paracasei, B.lactis [Probiotic] 1 tab PO DAILY 01/03/19 [History] Tumeric. 1 tab PO DAILY 01/03/19 [History] Apixaban [Eliquis] 5 mg PO BID 01/07/19 [History] Apixaban [Eliquis] 10 mg PO BID 01/07/19 [History] Clobetasol [Clobetasol 0.05%] 1 applic PRN 01/07/19 [History] Gluc 2KCl/Chondr/Meka Hy/Hy Ac [Glucosamine & Chondroitin Cap] 2 tab PO DAILY [History] Sennosides [Senna] 2 tab PO BID 01/07/19 [History] Oxygen Therapy Mode: Room Air Referrals: Liseth Cohen, [employer] [Primary Care Provider] - - Discharge Summary/Plan Comment DC Time >30 min.: No Discharge Summary/Plan Comment: Transfer to [facility] for upper level of care - General Info Date of Service: 01/08/19 Admission Dx/Problem (Free Text: Admission Diagnosis/Problem Admission Diagnosis/Problem Dehydration Subjective Update: Rested well overnight but she was still symptomatic this morning. She was unsteady and had difficulty with ambulation. Her ProBNP has gone up to 20K. Functional Status: Reports: Pain Controlled, Tolerating Diet, Ambulating. Denies: Urinating, New Symptoms - Review of Systems General: Reports: Weakness. Denies: Fever, Chills HEENT: Denies: No Symptoms Pulmonary: Denies: Shortness of Breath, Pleuritic Chest Pain, Cough Cardiovascular: Reports: Dyspnea on Exertion, Edema. Denies: Chest Pain, Palpitations, Lightheadedness Gastrointestinal: Denies: Abdominal Pain, Difficulty Swallowing, Nausea Genitourinary: Reports: No Symptoms Musculoskeletal: Reports: No Symptoms Skin: Reports: Bruising. Denies: Cyanosis, Pallor, Diaphoresis Neurological: Reports: Difficulty Walking, Weakness, Gait Disturbance. Denies: Confusion, Numbness, Seizure, Tingling Psychiatric: Denies: Depression, Mood Lability, Anxiety, Agitation, Hallucinations - Patient Data Vitals - Most Recent: Last Vital Signs Temp 36.6 C 01/08/19 14:15 Pulse 96 01/08/19 14:07 Resp 21 H 01/08/19 14:15 BP 124/84 01/08/19 14:06 Pulse Ox 96 01/08/19 15:00 Weight - Most Recent: 97.976 kg I&O - Last 24 hours: Intake & Output 01/08/19 01/08/19 01/08/19 06:59 14:59 22:59 Intake Total 1600 400 Output Total 400 Balance 1200 400 Lab Results - Last 24 hrs: Laboratory Results - last 24 hr 01/07/19 01/07/19 01/07/19 Range/Units 17:53 17:53 17:53 WBC 7.17 (3.98-10.04) K/mm3 RBC 4.05 (3.98-5.22) M/mm3 Hgb 12.6 D (11.2-15.7) gm/L Hct 39.0 (34.1-44.9) % MCV 96.3 H D (79.4-94.8) fl MCH 31.1 (25.6-32.2) pg MCHC 32.3 (32.2-35.5) g/dl RDW Std Deviation 52.1 H (36.4-46.3) fL Plt Count 184 (182-369) K/mm3 MPV 11.9 (9.4-12.3) fl Neut % (Auto) 67.0 (34.0-71.1) % Lymph % (Auto) 24.7 (19.3-51.7) % Teller % (Auto) 6.8 (4.7-12.5) % Eos % (Auto) 1.1 (0.7-5.8) Baso % (Auto) 0.1 (0.1-1.2) % Neut # (Auto) 4.80 (1.56-6.13) K/mm3 Lymph # (Auto) 1.77 (1.18-3.74) K/mm3 Teller # (Auto) 0.49 H (0.24-0.36) K/mm3 Eos # (Auto) 0.08 (0.04-0.36) K/mm3 Baso # (Auto) 0.01 (0.01-0.08) K/mm3 Manual Slide Review D-Dimer, Quantitative 5.03 H (0.19-0.50) mg/L Sodium 145 (136-145) mEq/L Potassium 3.9 (3.5-5.1) mEq/L Chloride 111 H (98-107) mEq/L Carbon Dioxide 18 L (21-32) mEq/L Anion Gap 19.9 H (5-15) BUN 32 H (7-18) mg/dL Creatinine 1.4 H (0.55-1.02) mg/dL Est Cr Clr Drug Dosing 35.73 mL/min Estimated GFR (MDRD) 37 (>60) mL/min BUN/Creatinine Ratio 22.9 H (14-18) Glucose 176 H (83-115) mg/dL Calcium 9.1 (8.5-10.1) mg/dL Magnesium (1.8-2.4) mg/dl Total Bilirubin 0.7 (0.2-1.0) mg/dL AST 153 H (15-37) U/L ALT 159 H (14-59) U/L Alkaline Phosphatase 87 (46-116) U/L Troponin I 0.051 (0.00-0.056) ng/mL NT-Pro-B Natriuret Pep (0-450) pg/mL Total Protein 6.9 (6.4-8.2) g/dl Albumin 3.1 L (3.4-5.0) g/dl Globulin 3.8 gm/dL Albumin/Globulin Ratio 0.8 L (1-2) 01/07/19 01/08/19 01/08/19 Range/Units 22:36 04:03 04:03 WBC 6.06 (3.98-10.04) K/mm3 RBC 4.03 (3.98-5.22) M/mm3 Hgb 12.5 (11.2-15.7) gm/L Hct 38.8 (34.1-44.9) % MCV 96.3 H (79.4-94.8) fl MCH 31.0 (25.6-32.2) pg MCHC 32.2 (32.2-35.5) g/dl RDW Std Deviation 51.9 H (36.4-46.3) fL Plt Count 176 L (182-369) K/mm3 MPV 12.4 H (9.4-12.3) fl Neut % (Auto) 69.6 (34.0-71.1) % Lymph % (Auto) 20.3 (19.3-51.7) % Teller % (Auto) 9.4 (4.7-12.5) % Eos % (Auto) 0.3 L (0.7-5.8) Baso % (Auto) 0.2 (0.1-1.2) % Neut # (Auto) 4.22 (1.56-6.13) K/mm3 Lymph # (Auto) 1.23 (1.18-3.74) K/mm3 Teller # (Auto) 0.57 H (0.24-0.36) K/mm3 Eos # (Auto) 0.02 L (0.04-0.36) K/mm3 Baso # (Auto) 0.01 (0.01-0.08) K/mm3 Manual Slide Review Normal smear D-Dimer, Quantitative (0.19-0.50) mg/L Sodium 141 (136-145) mEq/L Potassium 3.7 (3.5-5.1) mEq/L Chloride 108 H (98-107) mEq/L Carbon Dioxide 19 L (21-32) mEq/L Anion Gap 17.7 H (5-15) BUN 32 H (7-18) mg/dL Creatinine 1.3 H (0.55-1.02) mg/dL Est Cr Clr Drug Dosing 38.47 mL/min Estimated GFR (MDRD) 40 (>60) mL/min BUN/Creatinine Ratio 24.6 H (14-18) Glucose 143 H (83-115) mg/dL Calcium 9.1 (8.5-10.1) mg/dL Magnesium 2.1 (1.8-2.4) mg/dl Total Bilirubin (0.2-1.0) mg/dL AST (15-37) U/L ALT (14-59) U/L Alkaline Phosphatase (46-116) U/L Troponin I (0.00-0.056) ng/mL NT-Pro-B Natriuret Pep 58290 H (0-450) pg/mL Total Protein (6.4-8.2) g/dl Albumin (3.4-5.0) g/dl Globulin gm/dL Albumin/Globulin Ratio (1-2) 01/08/19 Range/Units 04:03 WBC (3.98-10.04) K/mm3 RBC (3.98-5.22) M/mm3 Hgb (11.2-15.7) gm/L Hct (34.1-44.9) % MCV (79.4-94.8) fl MCH (25.6-32.2) pg MCHC (32.2-35.5) g/dl RDW Std Deviation (36.4-46.3) fL Plt Count (182-369) K/mm3 MPV (9.4-12.3) fl Neut % (Auto) (34.0-71.1) % Lymph % (Auto) (19.3-51.7) % Teller % (Auto) (4.7-12.5) % Eos % (Auto) (0.7-5.8) Baso % (Auto) (0.1-1.2) % Neut # (Auto) (1.56-6.13) K/mm3 Lymph # (Auto) (1.18-3.74) K/mm3 Teller # (Auto) (0.24-0.36) K/mm3 Eos # (Auto) (0.04-0.36) K/mm3 Baso # (Auto) (0.01-0.08) K/mm3 Manual Slide Review D-Dimer, Quantitative (0.19-0.50) mg/L Sodium (136-145) mEq/L Potassium (3.5-5.1) mEq/L Chloride (98-107) mEq/L Carbon Dioxide (21-32) mEq/L Anion Gap (5-15) BUN (7-18) mg/dL Creatinine (0.55-1.02) mg/dL Est Cr Clr Drug Dosing mL/min Estimated GFR (MDRD) (>60) mL/min BUN/Creatinine Ratio (14-18) Glucose (83-115) mg/dL Calcium (8.5-10.1) mg/dL Magnesium (1.8-2.4) mg/dl Total Bilirubin (0.2-1.0) mg/dL AST (15-37) U/L ALT (14-59) U/L Alkaline Phosphatase (46-116) U/L Troponin I (0.00-0.056) ng/mL NT-Pro-B Natriuret Pep 61389 H (0-450) pg/mL Total Protein (6.4-8.2) g/dl Albumin (3.4-5.0) g/dl Globulin gm/dL Albumin/Globulin Ratio (1-2) Med Orders - Current: Current Medications Acetaminophen (Tylenol) 650 mg PO Q4H PRN PRN Reason: Pain (Mild 1-3)/fever Last Admin: 01/08/19 05:06 Dose: 650 mg Hydrocodone Bitart/Acetaminophen (Glidden 325-5 Mg) 1 tab PO Q4H PRN PRN Reason: Pain (moderate 4-6) Albuterol/Ipratropium (Duoneb 3.0-0.5 Mg/3 Ml) 3 ml NEB Q4H PRN PRN Reason: Shortness Of Breath/wheezing Amlodipine Besylate (Norvasc) 5 mg PO DAILY [facility] Last Admin: 01/08/19 10:40 Dose: Not Given Aspirin (Halfprin) 81 mg PO BEDTIME [facility] Last Admin: 01/07/19 23:03 Dose: 81 mg Bisacodyl (Dulcolax) 5 mg PO DAILY PRN PRN Reason: Constipation Cholecalciferol (Vitamin D3) 5,000 unit PO DAILY [facility] Last Admin: 01/08/19 10:41 Dose: 5,000 unit Docusate Sodium (Colace) 100 mg PO BID PRN PRN Reason: Constipation Heparin Sodium (Porcine) (Heparin Sodium) 5,000 units IVPUSH .BOLUS ONE Stop: 01/08/19 22:31 Hydralazine HCl (Apresoline) 15 mg IVPUSH Q4H PRN PRN Reason: Hypertension Hydromorphone HCl (Dilaudid) 0.25 mg IVPUSH Q2H PRN PRN Reason: Pain (severe 7-10) Promethazine HCl 6.25 mg/ (Sodium Chloride) 50.25 mls @ 100 mls/hr IV Q6H PRN PRN Reason: Nausea/Vomiting Heparin Sodium/Dextrose (Heparin 25,000 Units In D5w 500 Ml) 25,000 units in 500 mls @ 26 mls/hr IV TITRATE CLAUDE; Protocol Levothyroxine Sodium (Synthroid) 50 mcg PO BEDTIME [facility] Last Admin: 01/07/19 23:03 Dose: 50 mcg Lorazepam (Ativan) 0.25 mg IV Q6H PRN PRN Reason: Anxiety Lorazepam (Ativan) 2 mg IVPUSH Q4H PRN PRN Reason: Seizures Metoprolol Tartrate (Lopressor) 5 mg IVPUSH Q4H PRN PRN Reason: Tachycardia Ondansetron HCl (Zofran) 4 mg IV Q6H PRN PRN Reason: Nausea/Vomiting Fenofibrate 160 Mg * (*Ptom) 0 each PO DAILY [facility] Last Admin: 01/08/19 10:41 Dose: 1 each Omeprazole 20 Mg (Ptom) 0 each PO DAILY [facility] Last Admin: 01/08/19 10:41 Dose: 1 each Venlafaxine Hcl Er (150 Mg Ptom) 0 each PO DAILY [facility] Last Admin: 01/08/19 10:41 Dose: 1 each Polyethylene Glycol (Miralax) 17 gm PO DAILY PRN PRN Reason: Constipation Senna/Docusate Sodium (Senna Plus) 2 tab PO BID [facility] Last Admin: 01/08/19 10:41 Dose: 2 tab Senna/Docusate Sodium (Senna Plus) 1 tab PO BID PRN PRN Reason: Constipation Zolpidem Tartrate (Ambien) 5 mg PO BEDTIME PRN PRN Reason: Sleep Discontinued Medications Apixaban (Eliquis) 10 mg PO BID CLAUDE Stop: 01/12/19 21:01 Last Admin: 01/08/19 10:40 Dose: 10 mg Apixaban (Eliquis) 5 mg PO BID CLAUDE Furosemide (Lasix) 10 mg IVPUSH NOW ONE Stop: 01/07/19 22:23 Last Admin: 01/07/19 23:02 Dose: 10 mg Lactated Ringer's (Ringers, Lactated) 1,000 mls @ 999 mls/hr IV .BOLUS ONE Stop: 01/07/19 20:38 Last Admin: 01/07/19 19:50 Dose: 999 mls/hr Pantoprazole Sodium (Protonix Iv) 40 mg IV Q12HR CLAUDE - Exam Quality Assessment: Reports: Supplemental Oxygen General: Reports: Alert, Oriented, Cooperative, No Acute Distress, Other (Obese) HEENT: Reports: Pupils Equal, Pupils Reactive, EOMI, Mucous Membr. Moist/[place] Neck: Reports: Supple Lungs: Reports: Normal Respiratory Effort, Decreased Breath Sounds, Other (mild crackles ) Cardiovascular: Reports: Irregular Rhythm GI/Abdominal Exam: Normal Bowel Sounds, Soft, Non-Tender, No Organomegaly, No Distention, No Abnormal Bruit (Female) Exam: Deferred Rectal (Female) Exam: Deferred Back Exam: Reports: Normal Inspection, Decreased Range of Motion Extremities: Normal Inspection, Normal Range of Motion, Non-Tender, Normal Capillary Refill, Other (peripheral edema) Skin: Reports: Warm, Dry, Intact Neurological: Reports: No New Focal Deficit. Denies: Normal Gait Psy/Mental Status: Reports: Alert, Normal Affect, Normal Mood
[2019-01-08] MEDS ORDERED: Heparin Sodium 5,000 Units/ML Vial IVPUSH ONE (22:30)
[2019-01-08] MEDS ORDERED: Heparin Sodium/D5W 25,000 UNITS/500 ML BAG IV SCH (22:30)
[2019-01-13] MEDS ORDERED: Apixaban 5 MG Tab ** OWN MED PO SCH (09:00)
== END 2019-01-08 18:42 ==
LOC: JD.ED 17:43 → JD.MS 20:15
PROVIDERS: ADMIT Internal Medicine; ATTEND Internal Medicine
DX: R55 Syncope and collapse (principal); E86.0 Dehydration; I10 Essential (primary) hypertension; E78.5 Hyperlipidemia, unspecified; E03.9 Hypothyroidism, unspecified; E55.9 Vitamin D deficiency, unspecified; F32.9 Major depressive disorder, single episode, unspecified; K59.00 Constipation, unspecified; M19.90 Unspecified osteoarthritis, unspecified site; I26.99 Other pulmonary embolism without acute cor pulmonale; N17.9 Acute kidney failure, unspecified; R53.1 Weakness; E66.9 Obesity, unspecified; Z68.31 Body mass index [BMI] 31.0-31.9, adult; Z79.82 Long term (current) use of aspirin; Z79.899 Other long term (current) drug therapy; Z79.01 Long term (current) use of anticoagulants; Z85.3 Personal history of malignant neoplasm of breast; Z90.12 Acquired absence of left breast and nipple; Z87.891 Personal history of nicotine dependence
CPT/HCPCS: 36415; 70450; 71045; 80048; 80053; 83735; 83880; 84484; 85025; 85379; 93005; 93880; 93970; 96361; 96374; 97162; 97166; 97530; 99285; A9270; G0378; J7120; 93010; 96360; 99284

== ENCOUNTER 2019-03-04 16:14 | Emergency (ER) | payer MEDICARE, OTHER ==
--- NOTE | 2019-03-04 17:37 | CT ---
Head CT Technique: Multiple axial sections through the brain were obtained. Intravenous contrast was not utilized. Comparison: Prior head CT study of 01/08/19. Findings: Ventricles along with basal cisterns and sulci over the convexities are within normal limits for the patient's age. No abnormal parenchymal densities are seen. No evidence of intracranial hemorrhage. No midline shift or mass effect is seen. 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 This is a normal variant. Mastoid sinuses shows minimal mucosal thickening inferiorly on the right side which is a chronic finding. Visualized paranasal sinuses show nothing acute. Impression: 1. Stable appearing hyperostosis interna frontalis which is a normal variant. 2. Nothing acute is appreciated on noncontrast head CT exam. Diagnostic code #2
--- NOTE | 2019-03-04 17:44 | EDM.PDOC ---
ED HPI GENERAL MEDICAL PROBLEM - General Chief Complaint: Head Injury Stated Complaint: FALL Time Seen by Provider: 03/04/19 16:32 Source of Information: Reports: Patient, RN Notes Reviewed - History of Present Illness INITIAL COMMENTS - FREE TEXT/NARRATIVE: 78-year-old female tripped and fell at home a short time ago. She was moving a small potted plant from outdoors to the garage. She states she caught her foot on a 1 inch cement ledge, tripped and did fall hitting her forehead quite hard on the cement sidewalk. There was no LOC. She actually has no headache at this time. However she is on eliquis, history of recent DVT and PE. She just had her IVC filter removed earlier today in [place]. - Related Data Allergies Allergy/AdvReac Type Severity Reaction Status Date / Time docusate [From Colace] Allergy Hives Verified 03/04/19 16:31 oxaprozin [From Daypro] Allergy Hives Verified 01/07/19 17:51 Twirujq-Wyh-Dbi Reductase AdvReac Pain Verified 01/07/19 17:51 Inhibitor Home Meds: Home Meds Aspirin [Children's Aspirin] 81 mg PO BEDTIME 12/03/18 [History] Cholecalciferol (Vitamin D3) [Vitamin D3] 5,000 unit PO DAILY 12/03/18 [History] Fenofibrate 160 mg PO DAILY 12/03/18 [History] Fish Oil/[place]-3 Fatty Acids [Fish Oil 1,000 MG] 1 gm PO DAILY 12/03/18 [History ] Levothyroxine [Synthroid] 50 mcg PO BEDTIME 12/03/18 [History] Omeprazole 20 mg PO DAILY 12/03/18 [History] Triamterene/Hydrochlorothiazid [Triamterene-HCTZ 37.5-25 MG] 1 tab PO DAILY [History] Venlafaxine HCl [Venlafaxine ER] 150 mg PO DAILY 12/03/18 [History] amLODIPine Besylate [Amlodipine Besylate] 5 mg PO DAILY 12/03/18 [History] L.acidoph,Paracasei, B.lactis [Probiotic] 1 tab PO DAILY 01/03/19 [History] Tumeric. 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: Musculoskeletal History: Reports: Arthritis Psychiatric History: Reports: Depression Endocrine/Metabolic History: Reports: Hypoparathyroidism Hematologic History: Reports: Blood Transfusion(s) Oncologic (Cancer) History: Reports: Breast - Infectious Disease History Infectious Disease History: Reports: Chicken Pox, Measles - Past Surgical History HEENT Surgical History: Reports: Cataract Surgery Cardiovascular Surgical History: Reports: Other (See Below) Other Cardiovascular Surgeries/Procedures: ICP filter removed Female Surgical History: Reports: Hysterectomy, Mastectomy Musculoskeletal Surgical History: Reports: Knee Replacement, Shoulder Surgery Other Musculoskeletal Surgeries/Procedures:: Bilateral feet, right shoulder x2, bilateral knee replacement, thumb Oncologic Surgical History: Reports: Mastectomy Dermatological Surgical History: Reports: Other (See Below) Social & Family History - Family History Family Medical History: Noncontributory - Tobacco Use Smoking Status *Q: Former Smoker Used Tobacco, but Quit: Yes Month/Year Tobacco Last Used: 1985 - Caffeine Use Caffeine Use: Reports: Coffee Other Caffeine Use: Uses decaffinated beverages. - Recreational Drug Use Recreational Drug Use: No ED ROS GENERAL - Review of Systems Review Of Systems: See Below Constitutional: Denies: Fever, Chills, Diaphoresis HEENT: Reports: Other (forehead contussion). Denies: Ear Discharge, Ear Pain, Nosebleed, Vertigo, Vision Change Respiratory: Denies: Shortness of Breath Cardiovascular: Denies: Chest Pain GI/Abdominal: Denies: Abdominal Pain, Nausea, Vomiting Musculoskeletal: Denies: Neck Pain, Back Pain Skin: Reports: Erythema (mild forehead) Neurological: Denies: Dizziness, Headache, Numbness, Tingling, Trouble Speaking , Difficulty Walking, Weakness ED EXAM, HEAD INJURY - Physical Exam Exam: See Below General Appearance: Alert, No Apparent Distress Head: Facial Swelling (mild swelling and erythema superior forehead, face nontender). No: Scalp Swelling Ears: Normal External Exam, Normal Canal Nose: Normal Inspection Throat/Mouth: Normal Inspection Neck: Non-Tender, Full Range of Motion Respiratory: No Respiratory Distress, Lungs Clear, Normal Breath Sounds Cardiovascular: Regular Rate, Rhythm Back Exam: No: Paraspinal Tenderness, Vertebral Tenderness Extremities: Normal Inspection, Normal Range of Motion Neurologic: No Motor/Sensory Deficits, Alert, Oriented x 3 Course - Vital Signs Last Recorded V/S: Last Vital Signs Temp 97.2 F 03/04/19 16:27 Pulse 69 03/04/19 16:27 Resp 18 03/04/19 16:27 BP 152/73 H 03/04/19 16:27 Pulse Ox 98 03/04/19 16:27 - Re-Assessments/Exams Free Text/Narrative Re-Assessment/Exam: 03/12/19 09:08 CT of head nl, discharge instr. as documented. Departure - Departure Time of Disposition: 17:43 Disposition: Home, Self-Care 01 Condition: Fair Clinical Impression: Fall, Forehead contusion - Discharge Information Instructions: Fall Prevention in the Home, Adult, [id number], Contusion, Easy -to-Read Referrals: Liseth Cohen CHILD DEVELOPMENT ASSISTANT [Primary Care Provider] - Forms: ED Department Discharge Additional Instructions: Rest, ice packs as needed for swelling, also keeping your head elevated above your chest will help the swelling go down more quickly. Tylenol every 6-8 hours if needed for headache. Return to ED as needed.
== END 2019-03-04 17:52 | disposition home or self-care (01) ==
LOC: JD.ED 16:14
DX: S00.83XA Contusion of other part of head, initial encounter (principal); F32.9 Major depressive disorder, single episode, unspecified; E20.9 Hypoparathyroidism, unspecified; Z79.82 Long term (current) use of aspirin; Z79.899 Other long term (current) drug therapy; Z86.711 Personal history of pulmonary embolism; Z86.718 Personal history of other venous thrombosis and embolism; Z79.01 Long term (current) use of anticoagulants; Z88.8 Allergy status to other drugs, medicaments and biological substances; Z87.891 Personal history of nicotine dependence; W01.198A Fall on same level from slipping, tripping and stumbling with subsequent striking against other object, initial encounter; Y92.008 Other place in unspecified non-institutional (private) residence as the place of occurrence of the external cause
CPT/HCPCS: 70450; 70450-26; 99284-25

== ENCOUNTER → 2020-08-02 | Day surgery (SDC) | payer MEDICARE, OTHER ==
[2020-08-02] MEDS: Brimonidine 0.2% Ophth Soln 5 ML Bottle EYERT SCH ×2 (11:03→12:05)
[2020-08-02] MEDS: Phenylephrine 2.5% Ophth Soln 2 ML Bot EYERT SCH ×2 (11:07→11:15)
[2020-08-02] MEDS: Tropicamide 1% Ophth Soln 15 ML Bottle EYERT SCH ×2 (11:11→11:20)
== END ==
LOC: JD.SDS 10:54
PROVIDERS: ATTEND Ophthalmology
DX: H26.491 Other secondary cataract, right eye (principal); H16.223 Keratoconjunctivitis sicca, not specified as Sjogren's, bilateral; H35.373 Puckering of macula, bilateral; H40.1334 Pigmentary glaucoma, bilateral, indeterminate stage; H02.831 Dermatochalasis of right upper eyelid; H02.834 Dermatochalasis of left upper eyelid; I48.91 Unspecified atrial fibrillation; I10 Essential (primary) hypertension; E78.00 Pure hypercholesterolemia, unspecified; E07.9 Disorder of thyroid, unspecified; Z79.899 Other long term (current) drug therapy; Z79.890 Hormone replacement therapy; Z87.891 Personal history of nicotine dependence; Z85.3 Personal history of malignant neoplasm of breast; Z98.890 Other specified postprocedural states

== ENCOUNTER 2021-06-04 12:59 | Emergency (ER) | payer MEDICARE, OTHER ==
[2021-06-04 14:16] LABS: CORONAVIRUS COVID-19 NAA NEGATIVE (NEGATIVE)
== END 2021-06-04 15:15 | disposition home or self-care (01) ==
LOC: JD.ED 12:59
DX: J01.90 Acute sinusitis, unspecified (principal); Z88.8 Allergy status to other drugs, medicaments and biological substances; Z79.82 Long term (current) use of aspirin; Z79.899 Other long term (current) drug therapy; Z87.891 Personal history of nicotine dependence; Z20.822 Contact with and (suspected) exposure to COVID-19
CPT/HCPCS: 0241U; 71045; 71045-26; 99283-25

== ENCOUNTER 2021-08-15 10:55 | Emergency (ER) | payer MEDICARE, OTHER | END 2021-08-15 16:30 | disposition home or self-care (01) | LOC: JD.ED 10:55 | DX: R04.2 Hemoptysis (principal); J40 Bronchitis, not specified as acute or chronic; Z88.8 Allergy status to other drugs, medicaments and biological substances; Z79.01 Long term (current) use of anticoagulants; Z79.899 Other long term (current) drug therapy; Z87.891 Personal history of nicotine dependence | CPT/HCPCS: 36415; 71045; 71045-26; 71250; 71250-26; 85025; 85610; 99284-25 ==

== ENCOUNTER 2024-05-26 07:14 | Day surgery (SDC) | payer MEDICARE, OTHER ==
[~2024-05-26 07:14] MED LIST: Lactated Ringers 1,000 ML IV SCH; Lidocaine 1%/Sod Bicarbonate in NS 8.4% 1 ML Syringe IDERM PRN; Sodium Chloride 0.9% 10 ML Syringe FLUSH PRN; Sodium Chloride 0.9% 10 ML Syringe FLUSH SCH
[2024-05-26] MEDS ORDERED: HYDROmorphone 0.5 MG/0.5 ML Syringe IVPUSH PRN (07:31)
[2024-05-26] MEDS ORDERED: Ondansetron 4 MG/2 ML SDV IVPUSH PRN (07:31)
[2024-05-26] MEDS ORDERED: fentaNYL 100 MCG/2 ML SDV IVPUSH PRN (07:31)
[2024-05-26] MEDS ORDERED: Propofol 200 MG/20 ML SDV ONE ×2 (07:32→07:47)
[2024-05-26] MEDS ORDERED: Lidocaine 1% 4 ML ONE (07:33)
[2024-05-26] MEDS: Lactated Ringers 1,000 ML IV SCH (07:35)
[2024-05-26] MEDS ORDERED: Glycopyrrolate 0.2 MG/ML 2 ML SDV ONE (08:48)
== END 2024-05-26 09:38 | disposition home or self-care (01) ==
LOC: JD.SDS 07:14
PROVIDERS: ATTEND Surgery
DX: Z12.11 Encounter for screening for malignant neoplasm of colon (principal); K63.5 Polyp of colon; K57.30 Diverticulosis of large intestine without perforation or abscess without bleeding; K64.8 Other hemorrhoids; E03.9 Hypothyroidism, unspecified; Z88.8 Allergy status to other drugs, medicaments and biological substances; Z79.01 Long term (current) use of anticoagulants; Z79.899 Other long term (current) drug therapy; Z79.890 Hormone replacement therapy; Z86.0100 Personal history of colon polyps, unspecified
CPT/HCPCS: 45385; 88305; J2704; J3490; J7120; 00811; 99100

== ENCOUNTER 2025-03-12 01:40 | Emergency (ER) | payer MEDICARE ==
[2025-03-12] MEDS ORDERED: Naloxone 0.4 MG/ML SDV IVPUSH PRN (01:51)
[2025-03-12 02:06] LABS: BASOPHILS ABSOLUTE AUTO 0.0 K/mm3 (0.0-0.2); BASOPHILS PERCENT AUTO 0.3 % (0.0-1.0); EOSINOPHILS ABSOLUTE AUTO 0.2 K/mm3 (0.0-0.4); EOSINOPHILS PERCENT AUTO 2.4 % (0.0-6.0); IMMATURE GRAN ABSOLUTE AUTO 0.02 K/mm3 (0.00-0.05); IMMATURE GRAN PERCENT AUTO 0.3 % (0.0-0.4); LYMPHOCYTES ABSOLUTE AUTO 1.0 K/mm3 (1.0-4.8); LYMPHOCYTES PERCENT AUTO 13.1 % (24.0-44.0); MEAN PLATELET VOLUME 10.3 fl (9.4-12.3); MONOCYTES ABSOLUTE AUTO 0.6 K/mm3 (0.0-0.8); MONOCYTES PERCENT AUTO 7.1 % (0.0-8.0); NEUTROPHILS ABSOLUTE AUTO 6.0 K/mm3 (1.8-7.7); NEUTROPHILS PERCENT AUTO 76.8 % (41.0-71.0); NRBC ABSOLUTE 0.00 (0.00-0.02); NRBC PERCENT 0.0 % (0.0-0.2); PLATELET COUNT,PLT 246 K/mm3 (150-400); RED BLOOD CELL COUNT 3.63 M/mm3 (4.10-5.30); WHITE BLOOD CELL COUNT,WBC 7.84 K/mm3 (3.9-11.3)
[2025-03-12 02:31] LABS: A/G RATIO 0.8 (1-2); ALANINE AMINOTRANSFERASE,ALT 21.0 U/L (14-59); ASPARTATE AMNIOTRANSFERASE,AST 23.0 U/L (15-37); BILIRUBIN TOTAL 0.4 mg/dL (0.2-1.0); BLOOD UREA NITROGEN,BUN 14.0 mg/dL (7-18); CARBON DIOXIDE,CO2 27.0 mEq/L (21-32); CHLORIDE,CL 107.0 mEq/L (98-107); CREATININE 1.0 mg/dL (0.55-1.02); EST CRCL DRUG DOSING (CG) 45.33 mL/min; ESTIMATED GFR 56.0 mL/min (>60); GLUCOSE RANDOM 115.0 mg/dL (70-99); POTASSIUM,K 3.8 mEq/L (3.5-5.1); PROTEIN TOTAL,TP 6.4 g/dl (6.4-8.2); SODIUM,NA 143.0 mEq/L (136-145)
[2025-03-12] MEDS: Acetaminophen/oxyCODONE 325-5 MG Tab PO ONE (02:51)
== END 2025-03-12 04:00 | disposition home or self-care (01) ==
LOC: JD.ED 01:40
DX: M54.50 Low back pain, unspecified (principal); Z86.16 Personal history of COVID-19; Z79.899 Other long term (current) drug therapy; Z79.890 Hormone replacement therapy; Z79.01 Long term (current) use of anticoagulants; Z88.8 Allergy status to other drugs, medicaments and biological substances; Z88.5 Allergy status to narcotic agent
CPT/HCPCS: 36415; 80053; 83735; 85025; 96374; 99283-25; A9270-GY; J1171